=== PATIENT | female | born 1955 | race Two or more races ===

== ENCOUNTER 2016-06-07 22:59 | Inpatient (IN) | payer OTHER ==
[2016-06-07 23:20] VITALS: BMI 41.9
--- NOTE | 2016-06-08 01:26 | PDOC ---
History of Present Illness - General Chief Complaint: Wound Infection Stated Complaint: L TOE INFECTION Time Seen by Provider: 06/07/16 23:18 - History of Present Illness Initial Comments: 06/08/16 01:58 This 60-year-old woman with a history of diabetes mellitus and hyperlipidemia presents with a few day history of progressive right great toe infection. Patient was seen by her PMD, Dr. Roper, on June 05. At that time, she had pain/erythema/edema of the right forefoot, primarily around the great toe. There was no history of injury or open ulcer. She was started on Augmentin 875/ 125 twice a day. Today, forefoot became much more painful, red and swollen. Also, patient developed generalized headache with shaking chills this evening. Patient had no measured fever but states that she rarely becomes febrile when ill. No previous history of diabetic foot ulcer or cellulitis. No previous history of resistant organism colonization or infection. Patient had history of urosepsis approximately 5 years ago which warranted admission to the ICU at [facility]. Past History - Past Medical History Allergies/Adverse Reactions: Allergies Allergy/AdvReac Type Severity Reaction Status Date / Time Shellfish Allergy Verified 07/04/11 03:33 Shellfish *RETIRED-11/14/11 Allergy Uncoded 07/04/11 03:33 Home Medications: Ambulatory Orders Canagliflozin [Invokana] 100 mg PO DAILY tablet 04/12/15 Cholecalciferol (Vitamin D3) [Vitamin D3] 50,000 unit PO WEEKLY capsule Glipizide 10 mg PO 1/2 TAB BID tablet 04/12/15 Metformin HCl [Glucophage] 1,000 mg PO 1/2 TAB BID tablet 04/12/15 Multivitamin [Daily Multiple Vitamin] 1 each PO DAILY tablet 04/12/15 [place]-3 Fatty Acids/Fish Oil [Fish Oil 1,000 Mg Softgel] 1 each PO BID capsule 04/12/15 Thyroid [[place] Thyroid] 15 mg PO DAILY tablet 04/12/15 Dulaglutide [Trulicity] 0.75 mg SQ WEEKLY pen 07/27/15 Anemia: No Asthma: No Cancer: No Cardiac Disorders: No CVA: No COPD: No CHF: No Dementia: No Diabetes: Yes GI Disorders: No Disorders: No HTN: No Hypercholesterolemia: Yes Liver Disease: No Seizures: No Thyroid Disease: No - Surgical History Abdominal Surgery: No Appendectomy: No Cardiac Surgery: No Cholecystectomy: No Lung Surgery: No Neurologic Surgery: No Orthopedic Surgery: Yes - Psycho/Social/Smoking Cessation Hx Anxiety: No Suicidal Ideation: No Smoking Status: No Smoking History: Unknown if ever smoked Have you smoked in the past 12 months: No Number of Cigarettes Smoked Daily: 0 Information on smoking cessation initiated: No Hx Alcohol Use: No Drug/Substance Use Hx: No Substance Use Type: None Hx Substance Use Treatment: No Review of Systems - Review of Systems Able to Perform ROS?: Yes Comments:: 12 point review of systems is negative except for what is noted in the history of present illness *Physical Exam - Vital Signs Last Vital Signs Temp Pulse Resp BP Pulse Ox 98.9 F 90 14 136/79 98 06/07/16 23:16 06/07/16 23:16 06/07/16 23:16 06/07/16 23:16 06/07/16 23:16 - Physical Exam Comments: GENERAL: The patient is awake, alert, and fully oriented, in no acute distress. Vital signs as noted. HEAD: Normal with no signs of trauma. EYES: Pupils equal, round and reactive to light, extraocular movements intact, sclera anicteric, conjunctiva clear with no pallor. ENT: moist mucous membranes. Ears normal, nares patent, oropharynx clear without exudates. NECK: Normal range of motion, supple without lymphadenopathy, JVD, or masses. LUNGS: Breath sounds equal, clear to auscultation bilaterally. No wheeze/ crackles. HEART: Regular rate and rhythm, normal S1 and S2 without murmur or rub. ABDOMEN: Soft/nontender/nondistended. BS wnl. No guarding or rebound. No palpable masses. No hepatosplenomegaly. EXTREMITIES: Right lower extremity- erythema and edema 8 cm by 6 cm area of the dorsal forefoot, area markedly tender Inflammation extends distally to hallux with 3 mm pustule central plantar aspect IP joint No gross fluctuance present; no crepitus appreciated Faint erythema extends proximally 6 cm proximal to ankle joint, anterior aspect Remainder of the extremity exam is normal NEUROLOGICAL: Cranial nerves II through XII grossly intact. Normal speech, moving all extremities equally. PSYCH: Normal mood, normal affect. Wound culture taken from the pustule present on the plantar aspect of the right hallux Twelve-lead electrocardiogram is performed and shows normal sinus rhythm at 74 bpm; axis, intervals and wave forms are all normal. No evidence of acute ST or T-wave abnormalities. ED Treatment Course - LABORATORY CBC & Chemistry Diagram: 06/10/16 07:32 06/10/16 07:32 Medical Decision Making - Medical Decision Making Patient given 1 g of vancomycin IV after blood cultures/wound culture obtained Laboratory evaluation notable for white blood cell count 12,600 Lactic acid is not elevated at 0.952 Random glucose is 148; remainder of the chemistry profile is essentially normal 06/08/16 04:10 [facility] 06/08/16 05:23 Admitting PA chest x-ray of patient preliminary interpretation is no evidence of acute disease. 3 position right foot x-ray read preliminarily: no acute bony pathology and no gas seen in the soft tissue Patient transported to admission bed in stable condition; *DC/Admit/Observation/Transfer Diagnosis at time of Disposition: Cellulitis of right foot Diabetes mellitus Qualifiers: Diabetes mellitus type: type 2 Diabetes mellitus complication status: with skin complications Diabetes mellitus complication detail: with foot ulcer Diabetes mellitus termite exterminator insulin use: without termite exterminator use Qualified Code(s) : E11.621 - Type 2 diabetes mellitus with foot ulcer - Discharge Dispostion Condition at time of disposition: Good Admit: Yes - Referrals
[2016-06-08] MEDS ORDERED: KETOROLAC TROMETHAMINE 30 MG/1 ML VIAL IVPUSH ONE (01:40)
[2016-06-08] MEDS ORDERED: KETOROLAC TROMETHAMINE 30 MG/1 ML VIAL ONE (01:43)
[2016-06-08] MEDS ORDERED: VANCOMYCIN 1,000 MG in DEXTROSE 5%-WATER - 250 ML IVPB ONE (01:56)
[2016-06-08] MEDS ORDERED: VANCOMYCIN 1,000 MG VIAL (RESTRICTED TO ID ONLY) ONE (02:04)
[2016-06-08 02:27] LABS: BASOPHIL 0.4 % (0-2.0); EOSINOPHIL 1.3 % (0-4.5); MCHC 33.9 g/dl (32.0-36.0); MEAN CELL VOLUME 85.5 fl (80-96); NEUTROPHILS 70.9 % (42.8-82.8); RDW 13.6 % (11.6-15.6); WHITE BLOOD COUNT 12.6 K/mm3 (4.0-10.0)
[2016-06-08 03:05] LABS: ALBUMIN 3.6 g/dl (3.4-5.0); ANION GAP 14 (8-16); CALCIUM 8.8 mg/dL (8.5-10.1); CO2 27 mmol/L (21-32); CREATININE 0.6 mg/dL (0.55-1.02); GLUCOSE,RANDOM 148 mg/dL (74-106); SGOT/AST 12 U/L (15-37); SGPT/ALT 26 U/L (12-78)
[2016-06-08 03:06] LABS: ALK PHOS 89 U/L (45-117); BILIRUBIN,TOTAL 0.9 mg/dL (0.2-1.0); TOT PROT 7.5 g/dl (6.4-8.2)
[2016-06-08 03:07] LABS: INR 1.19 (0.82-1.09); PROTHROMBIN TIME (PATIENT) 13.1 SEC (9.98-11.88)
[2016-06-08 03:35] LABS: PLATELET COUNT 272 K/MM3 (134-434)
[2016-06-08 03:36] LABS: MEAN PLT VOLUME 7.9 fl (7.5-11.1)
--- NOTE | 2016-06-08 07:42 | HP ---
[id number] is a 60y/o female with a past medical history of NIDDM, Urosepsis and hyperlipidemia. Patient reports that on May, he noted pain and redness to her right great toe. She was evaluated by her primary care physician Dr. Roper on 06/05/2016, and placed on Augmentin. She reports compliance with Augmentin, however, on 06/07/2016 she reports the redness and pain worsened and she noticed the redness was spreading upward, she contacted her primary care physician and was referred to the emergency department for further evaluation. ER course was notable for: (1) cbc-->WBC 12.6 (2) xray of right foot questionable foreign body of right foot, no fracture (3) vancomycin 1gm given Recent Travel: none PAST MEDICAL HISTORY: see hpi PAST SURGICAL HISTORY: see hpi Social History: joyce , resides at home, Smoking: none Alcohol:none Drugs: none Family History: non contributory Allergies Shellfish Allergy (Verified 07/04/11 03:33) Shellfish *RETIRED-11/14/11 Allergy (Uncoded 07/04/11 03:33) HOME MEDICATIONS: Home Medications Medication Instructions Recorded Canagliflozin [Invokana] 100 mg PO DAILY tablet 04/12/15 Cholecalciferol (Vitamin D3) 50,000 unit PO WEEKLY capsule 04/12/15 [Vitamin D3] Glipizide 10 mg PO 1/2 TAB BID tablet 04/12/15 Metformin HCl [Glucophage] 1,000 mg PO 1/2 TAB BID tablet 04/12/15 Multivitamin [Daily Multiple 1 each PO DAILY tablet 04/12/15 Vitamin] [place]-3 Fatty Acids/Fish Oil [Fish 1 each PO BID capsule 04/12/15 Oil 1,000 Mg Softgel] Thyroid [[place] Thyroid] 15 mg PO DAILY tablet 04/12/15 Dulaglutide [Trulicity] 0.75 mg SQ WEEKLY pen 07/27/15 REVIEW OF SYSTEMS CONSTITUTIONAL: Absent: fever, chills, diaphoresis, generalized weakness, malaise, loss of appetite, weight change HEENT: Absent: rhinorrhea, nasal congestion, throat pain, throat swelling, difficulty swallowing, mouth swelling, ear pain, eye pain, visual changes CARDIOVASCULAR: Absent: chest pain, syncope, palpitations, irregular heart rate, lightheadedness , peripheral edema RESPIRATORY: Absent: cough, shortness of breath, dyspnea with exertion, orthopnea, wheezing, stridor, hemoptysis GASTROINTESTINAL: Absent: abdominal pain, abdominal distension, nausea, vomiting, diarrhea, constipation, melena, hematochezia GENITOURINARY: Absent: dysuria, frequency, urgency, hesitancy, hematuria, flank pain, genital pain MUSCULOSKELETAL: Absent: myalgia, arthralgia, joint swelling, back pain, neck pain SKIN: Absent: rash, itching, pallor HEMATOLOGIC/IMMUNOLOGIC: Absent: easy bleeding, easy bruising, lymphadenopathy, frequent infections ENDOCRINE: Absent: unexplained weight gain, unexplained weight loss, heat intolerance, cold intolerance NEUROLOGIC: Absent: headache, focal weakness or paresthesias, dizziness, unsteady gait, seizure, mental status changes, bladder or bowel incontinence PSYCHIATRIC: Absent: anxiety, depression, suicidal or homicidal ideation, hallucinations. PHYSICAL EXAMINATION GENERAL: Awake, alert, and fully oriented, in no acute distress. HEAD: Normal with no signs of trauma. EYES: Pupils equal, round and reactive to light, extraocular movements intact, sclera anicteric, conjunctiva clear. No lid lag. EARS, NOSE, THROAT: Ears normal, nares patent, oropharynx clear without exudates. Moist mucous membranes. NECK: Normal range of motion, supple without lymphadenopathy, JVD, or masses. LUNGS: Breath sounds equal, clear to auscultation bilaterally. No wheezes, and no crackles. No accessory muscle use. HEART: Regular rate and rhythm, normal S1 and S2 without murmur, rub or gallop. ABDOMEN: Soft, nontender, not distended, normoactive bowel sounds, no guarding, no rebound, no masses. No hepatomegaly or splenomegaly. MUSCULOSKELETAL: Normal range of motion at all joints. No bony deformities or tenderness. No CVA tenderness. UPPER EXTREMITIES: 2+ pulses, warm, well-perfused. No cyanosis. No clubbing. No peripheral edema. LOWER EXTREMITIES: 2+ pulses, warm, well-perfused. No calf tenderness. RIGHT LOWER EXTREMITY: erythema noted to the right great toe, fluctuance noted to dorsum of the right great toe erythema extending to the metatarsals of the right foot, erythema marked, significant tenderness, +3 pedal pulse, +2 edema of the right foot NEUROLOGICAL: Cranial nerves II-XII intact. Normal speech. Normal gait. PSYCHIATRIC: Cooperative. Good eye contact. Appropriate mood and affect. SKIN: Warm, dry, normal turgor, no rashes or lesions noted, normal capillary refill. ASSESSMENT/PLAN: 1) ID: right foot cellulitis - vancomycin given in the ED, appreciate the input of ID (Chema) for antibiotic clearance. - wbc 12.6, leukocytosis noted, pt afebrile, monitor cbc and fever curve - f/u blood cultures - xray of right foot reviewed, no gas noted on xray, mri ordered to r/o osteomyelitis - case discusses with Dr Olmos, (podiatry) will evaluate patient 2) endo: NIDDM - pending hgb a1c, fingerstick achs with regular insulin coverage hypothyroidism - continue armour pending TSH and t4 3) card - LFT's WNL, continue lipitor (subsitute for simvastin f/e/n - diabetic diet - replete lytes prn ppx - oob - zantac dispo: requires inpatient care Visit type - Emergency Visit Emergency Visit: Yes ED Registration Date: 06/08/16 Care time: The patient presented to the Emergency Department on the above date and was hospitalized for further evaluation of their emergent condition. - New Patient This patient is new to me today: Yes Date on this admission: 06/08/16 - Critical Care Critical Care patient: No
[2016-06-08] MEDS: MULTIVITAMINS (DAILY MVI) TABLET (FP) PO SCH (09:47)
[2016-06-08] MEDS: THYROID 15 MG TABLET PO SCH (09:48)
[2016-06-08] MEDS ORDERED: PNEUMOC 13-VAL CONJ-DIP CRM/PF 0.5 ML DISP.SYRIN IM ONE (10:00)
[2016-06-08] MEDS ORDERED: PNEUMOCOCCAL 23 VACCINE 0.5 ML VIAL IM ONE (10:00)
--- NOTE | 2016-06-08 10:10 | PN ---
Progress Note (short form) - Note Progress Note: ID Consult dictated Cellulitis R foot Leukocytosis Diabetes mellitus Podiatry evaluation Empiric vancomycin/ zosyn
[2016-06-08 10:50] LABS: ALBUMIN 3.2 g/dl (3.5-5.0); ALK PHOS 67 U/L (32-92); ANION GAP 7 (8-16); BASOPHIL 0.4 % (0-2.0); BILIRUBIN,TOTAL 1.1 mg/dl (0.2-1.0); CALCIUM 8.7 mg/dl (8.4-10.2); CO2 24 mmol/L (22-28); CREATININE 0.6 mg/dl (0.6-1.3); EOSINOPHIL 2.6 % (0-4.5); GLUCOSE,RANDOM 212 mg/dl (74-106); MEAN PLT VOLUME 7.9 fl (7.5-11.1); NEUTROPHILS 62.3 % (42.8-82.8); PLATELET COUNT 285 K/MM3 (134-434); RDW 12.3 % (11.6-15.6); SGOT/AST 15 U/L (10-42); SGPT/ALT 17 U/L (10-40); TOT PROT 6.4 g/dl (6.4-8.3); URIC ACID 5.4 mg/dl (2.6-7.2); WHITE BLOOD COUNT 8.4 K/mm3 (4.0-10.0)
[2016-06-08] MEDS ORDERED: PT OWN MED DRAWER 7, Y5N ONE (10:57)
[2016-06-08] MEDS ORDERED: VANCOMYCIN 1,000 MG in SODIUM CHLORIDE 250 ML IVPB SCH (11:00)
[2016-06-08] MEDS ORDERED: INSULIN (NOVOLOG) ASPART 100 UNITS/ML 10ML VIAL SQ SCH (11:00)
[2016-06-08] MEDS: PIPERACILLIN/TAZOB 3.375 GM 3.375 GM in SODIUM CHLORIDE 50 ML IVPB SCH ×2 (11:04→21:43)
[2016-06-08] MEDS: INSULIN (NOVOLOG) ASPART 100 UNITS/ML 10ML VIAL SQ SCH ×3 (11:09→21:45)
[2016-06-08] MEDS: RANITIDINE HCL 150 MG TABLET (FP) PO SCH (11:56)
[2016-06-08] MEDS: LACTOBACILLUS ACIDOPHILUS 1 EACH TAB (FP) PO SCH (11:57)
[2016-06-08 12:12] LABS: ERYTHROCYTE SEDIMENTATION RATE 55 mm/hr (0-30)
[2016-06-08 12:13] LABS: FREE T4 1.19 ng/dl (0.76-1.46)
[2016-06-08 13:30] LABS: C-REACTIVE PROTEIN 7.4 MG/DL (0.00-0.3)
--- NOTE | 2016-06-08 13:52 | CONS ---
DATE OF CONSULTATION: DATE OF DICTATION: 06/08/2016 INFECTIOUS DISEASE CONSULTATION HISTORY OF PRESENT ILLNESS: The patient is a 60-year-old diabetic female who was evaluated for cellulitis of the right foot. The patient reports that on Saturday, June 04, 2016, she had spent most of the day on her feet. She noted swelling of the right foot and erythema involving the area of the right great toe. She had presented to her primary care physician on the following day on June 05, 2016, and was found to have cellulitis of the right great toe. She was prescribed Augmentin, and despite the Augmentin she developed worsening pain, erythema, and swelling of the right foot. She also experienced rigors. She presented to the emergency room where she was found to have cellulitis of the right foot and was admitted to the hospital. She denies any traumatic injury to her right lower extremity. She does have peripheral neuropathy with decreased sensation in her feet. She denies any high-grade fevers. She denies prior history of serious soft tissue infection requiring hospitalization or a history of MRSA infection. PAST MEDICAL HISTORY: Positive for diabetes mellitus and hyperlipidemia. ALLERGIES: ALLERGIES TO SHELLFISH. MEDICATIONS: Invokana, glipizide, metformin, and Synthroid. SOCIAL HISTORY: She is an Muslim computer hardware developer. She is a nonsmoker and nondrinker. SYSTEMS REVIEW: Neurologic: No loss of consciousness, seizure activity, or focal weakness. Cardiac: Negative chest pain or palpitations. Respiratory: Negative cough or sputum production. Gastrointestinal: Negative vomiting or diarrhea. Genitourinary: Negative for urinary tract infection. LABORATORY DATA: White count of 12.6, hematocrit of 40, and platelets of 272. BUN of 11 and creatinine of 0.6. Culture is pending. PHYSICAL EXAMINATION: General Appearance: She is awake and alert. She is not acutely toxic appearing. Vital Signs: Temperature of 97.7, blood pressure of 122/63, pulse of 78 and regular, and respirations of 20 per minute. HEENT: Sclerae are anicteric. Cardiovascular: Heart sounds S1, S2. Lungs: Clear. Abdomen: Soft, obese, and nontender. Extremities: Examination of the lower extremities there is swelling of the right foot. There is erythema extending from the area of the right great toe to the area of the 1st metatarsal head and to the base of the toes. It is warm to touch and tender. There is no crepitus, fluctuance, or lymphatic streaking. There is a callous present on the plantar aspect of the right great toe. No fluctuance or expressible pus. IMPRESSION 1. Cellulitis of the right foot. 2. Leukocytosis, possible sepsis secondary to diabetic foot infection. 3. Diabetes mellitus. 4. Diabetic peripheral neuropathy. Await culture results. Podiatry evaluation. X-ray shows possible presence of foreign body in the soft tissues of the right foot. Empiric antibiotic coverage pending cultures with vancomycin and Zosyn. Elevation, analgesics. Will follow. Thank you for the kind referral. RICKIE NEAL M.D. JOSE/[id number]
[2016-06-08] MEDS: VANCOMYCIN 1,000 MG in SODIUM CHLORIDE 250 ML IVPB SCH (14:16)
[2016-06-08 16:20] LABS: PH,URINE 5.5 (4.5-8); URINE APPEARANCE CLOUDY; URINE BILIRUBIN Negative (NEGATIVE); URINE BLOOD Negative (NEGATIVE); URINE COLOR YELLOW; URINE GLUCOSE (UA) 2+ (NEGATIVE); URINE KETONE 1+ (NEGATIVE); URINE LEUK ESTERASE Negative (NEGATIVE); URINE NITRITE Negative (NEGATIVE); URINE PROTEIN Negative (NEGATIVE); URINE UROBILINOGEN 0.2 E.U/dl (0.2-1.0)
[2016-06-08] MEDS ORDERED: INSULIN (NOVOLOG) ASPART 100 UNITS/ML 10ML VIAL ONE ×2 (16:25→21:34)
--- NOTE | 2016-06-08 16:33 | EKG ---
Test Reason : Blood Pressure : / mmHG Vent. Rate : 074 BPM Atrial Rate : 074 BPM P-R Int : 180 ms QRS Dur : 068 ms QT Int : 400 ms P-R-T Axes : 059 037 053 degrees QTc Int : 444 ms NORMAL SINUS RHYTHM NO PREVIOUS ECGS AVAILABLE Confirmed by MD GIOVANNA, MONE ([id number]) on 06/08/2016 4:33:29 PM Referred By: MD SHEPHERD Confirmed By:MONE HEREDIA MD
[2016-06-08] MEDS ORDERED: PIPERACILLIN/TAZOB 3.375 GM 50 ML IVPB ONE (21:30)
[2016-06-08] MEDS: ATORVASTATIN CA 20 MG TABLET (FP) PO SCH (21:43)
[2016-06-08] MEDS ORDERED: ATORVASTATIN CA 40 MG TABLET (FP) PO SCH (22:00)
[2016-06-09] MEDS ORDERED: PT OWN MED DRAWER 7, Y5N ONE ×3 (01:13→21:45)
[2016-06-09] MEDS: VANCOMYCIN 1,000 MG in SODIUM CHLORIDE 250 ML IVPB SCH ×2 (01:27→13:59)
[2016-06-09] MEDS: INSULIN (NOVOLOG) ASPART 100 UNITS/ML 10ML VIAL SQ SCH ×4 (07:15→22:04)
[2016-06-09] MEDS: PIPERACILLIN/TAZOB 3.375 GM 3.375 GM in SODIUM CHLORIDE 50 ML IVPB SCH ×2 (09:34→21:52)
[2016-06-09] MEDS: MULTIVITAMINS (DAILY MVI) TABLET (FP) PO SCH (09:35)
[2016-06-09] MEDS: LACTOBACILLUS ACIDOPHILUS 1 EACH TAB (FP) PO SCH (09:35)
[2016-06-09] MEDS: THYROID 15 MG TABLET PO SCH (09:35)
[2016-06-09] MEDS: RANITIDINE HCL 150 MG TABLET (FP) PO SCH (09:35)
--- NOTE | 2016-06-09 10:23 | PN ---
Progress Note, Physician History of Present Illness: Reports less foot pain No fever/ chills Tolerating antibiotic MRI shows possible early osteomyelitis - Current Medication List Current Medications: Active Medications Acetaminophen (Tylenol -) 650 mg PO Q4H PRN PRN Reason: FEVER OR PAIN Atorvastatin Calcium (Lipitor -) 20 mg PO HS [facility] Last Admin: 06/08/16 21:43 Dose: 20 mg Piperacillin Sod/Tazobactam (Sod 3.375 gm/ Sodium Chloride) 50 mls @ 100 mls/ hr IVPB BID GON[facility]LE[facility] PRN Reason: Protocol Last Admin: 06/09/16 09:34 Dose: 100 mls/hr Vancomycin HCl 1,000 mg/ (Sodium Chloride) 250 mls @ 166.667 mls/hr IVPB Q12H [facility] Last Admin: 06/09/16 01:27 Dose: 166.667 mls/hr Insulin Aspart (Novolog Vial) 0 units SQ ACHS [facility] PRN Reason: Protocol Stop: 06/13/16 08:21 Last Admin: 06/08/16 21:45 Dose: 2 units Lactobacillus Acidophilus (Bacid -) 1 tab PO DAILY [facility] Last Admin: 06/09/16 09:35 Dose: 1 tab Multivitamins/Minerals/Vitamin C (Tab-A-Vit -) 1 tab PO DAILY [facility] Last Admin: 06/09/16 09:35 Dose: 1 tab Non-Formulary Medication ([place]-3 Fatty Acids/Fish Oil [Fish Oil 1,000 Mg Softgel]) 1 each PO BID [facility] Last Admin: 06/08/16 09:50 Dose: Not Given Oxycodone HCl (Roxicodone -) 5 mg PO Q6H PRN PRN Reason: PAIN Ranitidine HCl (Zantac -) 150 mg PO DAILY [facility] Last Admin: 06/09/16 09:35 Dose: 150 mg Thyroid ([place] Thyroid -) 15 mg PO DAILY [facility] Last Admin: 06/09/16 09:35 Dose: 15 mg - Objective Vital Signs: Vital Signs Temperature 99.2 F 06/09/16 06:00 Pulse Rate 75 06/09/16 06:00 Respiratory Rate 19 06/09/16 09:24 Blood Pressure 159/62 06/09/16 06:00 O2 Sat by Pulse Oximetry (%) 96 06/09/16 09:24 Constitutional: Yes: No Distress Eyes: Yes: Conjunctiva Clear Cardiovascular: Yes: Regular Rate and Rhythm, S1, S2 Respiratory: Yes: CTA Bilaterally Gastrointestinal: Yes: Normal Bowel Sounds, Soft. No: Tenderness Extremities: Yes: Other (slightly improved erythema and swelling of R great toe , forefoot) Labs: CBC, BMP 06/08/16 10:00 06/08/16 10:00 INR, PTT INR 1.19 (0.82-1.09) H 06/08/16 01:32 Assessment/Plan Cellulitis R foot Possible early osteomyelitis Leukocytosis-improved Diabetes mellitus Wound c/s, podiatry consult pending Continue zosyn/ vancomycin Local wound care
[2016-06-09 10:51] LABS: BASOPHIL 0.5 % (0-2.0); EOSINOPHIL 2.8 % (0-4.5); MCHC 34.1 g/dl (32.0-36.0); MEAN CELL VOLUME 85.1 fl (80-96); MEAN PLT VOLUME 7.7 fl (7.5-11.1); NEUTROPHILS 66.7 % (42.8-82.8); PLATELET COUNT 333 K/MM3 (134-434); RDW 12.5 % (11.6-15.6); WHITE BLOOD COUNT 8.6 K/mm3 (4.0-10.0)
[2016-06-09 11:04] LABS: ALBUMIN 3.6 g/dl (3.5-5.0); ALK PHOS 77 U/L (32-92); ANION GAP 7 (8-16); BILIRUBIN,TOTAL 0.8 mg/dl (0.2-1.0); CO2 24 mmol/L (22-28); CREATININE 0.6 mg/dl (0.6-1.3); GLUCOSE,RANDOM 177 mg/dl (74-106); MAGNESIUM 1.9 mg/dL (1.8-2.4); PHOSPHOROUS 3.1 mg/dl (2.5-4.6); SGOT/AST 24 U/L (10-42); SGPT/ALT 20 U/L (10-40); TOT PROT 7.3 g/dl (6.4-8.3)
[2016-06-09] MEDS: ACETAMINOPHEN 325 MG TABLET (FP) PO PRN ×2 (11:39→20:00)
--- NOTE | 2016-06-09 14:41 | PN ---
[id number] OBJECTIVE: patient is a 60y/o female with a past medical history of NIDDM, Urosepsis and hyperlipidemia. patient was admitted from the emergency department for right foot cellulitis after failing outpatient antibiotic therapy. Vital Signs Period Temp Pulse Resp BP Sys/Mas Pulse Ox Last 24 Hr 97.8 F-99.2 F 75-86 18-19 127-159/62-72 95-97 GENERAL: Awake, alert, and fully oriented, in no acute distress. HEAD: Normal with no signs of trauma. EYES: Pupils equal, round and reactive to light, extraocular movements intact, sclera anicteric, conjunctiva clear. No lid lag. EARS, NOSE, THROAT: Ears normal, nares patent, oropharynx clear without exudates. Moist mucous membranes. NECK: Normal range of motion, supple without lymphadenopathy, JVD, or masses. LUNGS: Breath sounds equal, clear to auscultation bilaterally. No wheezes, and no crackles. No accessory muscle use. HEART: Regular rate and rhythm, normal S1 and S2 without murmur, rub or gallop. ABDOMEN: Soft, nontender, not distended, normoactive bowel sounds, no guarding, no rebound, no masses. No hepatomegaly or splenomegaly. MUSCULOSKELETAL: Normal range of motion at all joints. No bony deformities or tenderness. No CVA tenderness. UPPER EXTREMITIES: 2+ pulses, warm, well-perfused. No cyanosis. No clubbing. No peripheral edema. LOWER EXTREMITIES: 2+ pulses, warm, well-perfused. No calf tenderness. RIGHT LOWER EXTREMITY: erythema noted to the right great toe, fluctuance noted to plantar of the right great toe, erythema is much improved extending to the metatarsals of the right foot, erythema is not extending past the markings, tenderness is much improved, +3 pedal pulse, +2 edema of the right foot NEUROLOGICAL: Cranial nerves II-XII intact. Normal speech. Normal gait. PSYCHIATRIC: Cooperative. Good eye contact. Appropriate mood and affect. SKIN: Warm, dry, normal turgor, no rashes or lesions noted, normal capillary refill. Laboratory Results - last 24 hr 06/08/16 06/08/16 06/08/16 15:00 16:00 16:21 WBC RBC Hgb Hct MCV MCHC RDW Plt Count MPV Neutrophils % Lymphocytes % Monocytes % Eosinophils % Basophils % Sodium Potassium Chloride Carbon Dioxide Anion Gap BUN Creatinine Creat Clearance w eGFR POC Glucometer 168 Random Glucose Hemoglobin A1c % 9.2 H D Calcium Phosphorus Magnesium Total Bilirubin AST ALT Alkaline Phosphatase Total Protein Albumin Urine Color Yellow Urine Appearance Cloudy Urine pH 5.5 Ur Specific [place] 1.015 Urine Protein Negative Urine Glucose (UA) 2+ H Urine Ketones 1+ H Urine Blood Negative Urine Nitrite Negative Urine Bilirubin Negative Urine Urobilinogen 0.2 e.u/dl Ur Leukocyte Esterase Negative 06/08/16 06/09/16 06/09/16 21:45 06:06 10:30 WBC 8.6 RBC 5.00 Hgb 14.5 D Hct 42.6 MCV 85.1 MCHC 34.1 RDW 12.5 Plt Count 333 MPV 7.7 Neutrophils % 66.7 Lymphocytes % 25.2 Monocytes % 4.8 Eosinophils % 2.8 Basophils % 0.5 Sodium Potassium Chloride Carbon Dioxide Anion Gap BUN Creatinine Creat Clearance w eGFR POC Glucometer 156 122 Random Glucose Hemoglobin A1c % Calcium Phosphorus Magnesium Total Bilirubin AST ALT Alkaline Phosphatase Total Protein Albumin Urine Color Urine Appearance Urine pH Ur Specific [place] Urine Protein Urine Glucose (UA) Urine Ketones Urine Blood Urine Nitrite Urine Bilirubin Urine Urobilinogen Ur Leukocyte Esterase 06/09/16 06/09/16 10:30 11:42 WBC RBC Hgb Hct MCV MCHC RDW Plt Count MPV Neutrophils % Lymphocytes % Monocytes % Eosinophils % Basophils % Sodium 133 L Potassium 4.2 Chloride 102 Carbon Dioxide 24 Anion Gap 7 L BUN 12 Creatinine 0.6 Creat Clearance w eGFR > 60 POC Glucometer 136 Random Glucose 177 H Hemoglobin A1c % Calcium 9.0 Phosphorus 3.1 Magnesium 1.9 Total Bilirubin 0.8 D AST 24 D ALT 20 Alkaline Phosphatase 77 Total Protein 7.3 Albumin 3.6 Urine Color Urine Appearance Urine pH Ur Specific [place] Urine Protein Urine Glucose (UA) Urine Ketones Urine Blood Urine Nitrite Urine Bilirubin Urine Urobilinogen Ur Leukocyte Esterase Active Medications Generic Name Dose Route Start Last Admin Trade Name Freq PRN Reason Stop Dose Admin Acetaminophen 650 mg 06/08/16 11:27 06/09/16 11:39 Tylenol - PO 650 mg Q4H PRN Administration FEVER OR PAIN Atorvastatin Calcium 20 mg 06/08/16 22:00 06/08/16 21:43 Lipitor - PO 20 mg HS GONZÁLEZ Administration Piperacillin Sod/Tazobactam 50 mls @ 100 mls/hr 06/08/16 10:45 06/09/16 09:34 Sod 3.375 gm/ Sodium Chloride IVPB 100 mls/hr BID GONZÁLEZ Administration Protocol Vancomycin HCl 1,000 mg/ 250 mls @ 166.667 mls/hr 06/08/16 14:00 06/09/16 13:59 Sodium Chloride IVPB 166.667 mls/hr Q12H GONZÁLEZ Administration Insulin Aspart 0 units 06/08/16 11:00 06/09/16 11:44 Novolog Vial SQ 06/13/16 08:21 Not Given ACHS [facility] Protocol Lactobacillus Acidophilus 1 tab 06/08/16 11:30 06/09/16 09:35 Bacid - PO 1 tab DAILY GONZÁLEZ Administration Multivitamins/Minerals/Vitamin C 1 tab 06/08/16 10:00 06/09/16 09:35 Tab-A-Vit - PO 1 tab DAILY GONZÁLEZ Administration Non-Formulary Medication 1 each 06/08/16 10:00 06/08/16 09:50 [place]-3 Fatty Acids/Fish Oil [Fish Oil 1,000 Mg Softgel] PO Not Given BID GONZÁLEZ Oxycodone HCl 5 mg 06/08/16 11:28 Roxicodone - PO Q6H PRN PAIN Ranitidine HCl 150 mg 06/08/16 11:30 06/09/16 09:35 Zantac - PO 150 mg DAILY GONZÁLEZ Administration Thyroid 15 mg 06/08/16 10:00 06/09/16 09:35 [place] Thyroid - PO 15 mg DAILY GONZÁLEZ Administration Microbiology 06/08/16 01:20 Toe - Right Hallux Gram Stain - Final 06/08/16 01:20 Toe - Right Hallux Wound Culture - Preliminary NO GROWTH OBTAINED AFTER 24 HOURS INCUBATION, REINCUBATED. 06/08/16 03:30 Urine - Urine Clean Catch Urine Culture - Final NO GROWTH OBTAINED 06/08/16 01:30 Blood - Peripheral Venous Blood Culture - Preliminary NO GROWTH OBTAINED AFTER 24 HOURS, INCUBATION TO CONTINUE FOR 4 DAYS. 06/08/16 01:30 Blood - Peripheral Venous Blood Culture - Preliminary NO GROWTH OBTAINED AFTER 24 HOURS, INCUBATION TO CONTINUE FOR 4 DAYS. IMAGING xray of right foot questionable foreign body of right foot, no fracture MRI of right foot, diffuse soft tissue edema, suspicious for early osteomyelitis. ASSESSMENT/PLAN: 1) ID: right foot cellulitis - MRI results noted, questionable foreign body of right toe noted on xray in setting of significant soft tissue edema and questionable osteomyelitis, case discussed with Dr Encarnacion (podiatry), will defer to Dr Encarnacion for foreign body removal. - contine vancomycin and zosyn as per ID - no leukocytosis noted, pt afebrile, continue to monitor cbc and fever curve - blood cultures NTD - case discusses with Dr Olmos, (podiatry) will evaluate patient - ID (Chema) consulted and followed. 2) endo: NIDDM - continue fingerstick achs with regular insulin coverage for tighter glucose control hypothyroidism - continue armour pending TSH and t4 3) card - continue lipitor (subsitute for simvastin) f/e/n - diabetic diet - replete lytes prn ppx - oob - zantac dispo: requires inpatient care Visit type - Emergency Visit Emergency Visit: Yes ED Registration Date: 06/08/16 Care time: The patient presented to the Emergency Department on the above date and was hospitalized for further evaluation of their emergent condition. - New Patient This patient is new to me today: No - Critical Care Critical Care patient: No - Discharge Referral Referred to [facility] No
--- NOTE | 2016-06-09 18:13 | CONSULT ---
Consult - text type - Consultation Consultation Note: Podiatry Consultation: 60 year old pleasant NIDDM F presents for admission for increased redness/ swelling to the R great toe since Sunday. Patient went to see PCP who prescribed her PO augmentin, however failed trial of PO abx as redness/swelling continued to the lower leg. She does note improvement in swelling/redness since admission, however has significant tenderness to the R great toe. She does not recall stepping on anything, however does ambulate at home with soft slippers. Reports fever/chills for several days. Currently low grade temp 99 F , otherwise VSS. PMHx: NIDDM, HLP, urosepsis Meds: noted in chart ALL: shellfish FRANK: R foot: pedal pulses palpable, TG warm-warmer RLE, CFT brisk to all toes. On the right great toe, there is a pustule on the plantar aspect of the IPJ with cellulitis and edema to the forefoot. There is significant tenderness on compression of the pustule. There is superficial purulence expressed from the site. There is no soft tissue crepitus, some fluctuance localized. Epicritic sensation diminished to bilateral feet. WBC: 8.6 ESR: 55 Blood Cx: no growth Wound Cx: no growth MRI R foot: suspicious for early OM Imp: 60 year old DM F with R great toe pustule and cellulitis 1. Incision and drainage performed at bedside, yielding small shard of glass that was subsequently removed in total. The wound was debrided to subcutaneous tissue, there was no significant depth to the wound or probing to bone. New wound culture obtained. Dry sterile dressing applied. Pt tolerated the procedure well. 2. Bactroban + DSD dressing changes. 3. Cellulitis should improve over next 48 hrs with IV abx treatment. 4. Will discuss with ID, given foreign body present and now subsequently removed I am not convinced this is an acute osteomyelitis. 5. Monitor over next 2 days, should improved. Thanks for the courtesy of this consultation. Nella Encarnacion DPM
[2016-06-09] MEDS: oxyCODONE HCL 5 MG TABLET PO PRN (20:01)
[2016-06-09] MEDS ORDERED: POLYETHYLENE GLYCOL 3350 119 GM BTL PO ONE (21:50)
[2016-06-09] MEDS: ATORVASTATIN CA 20 MG TABLET (FP) PO SCH (21:52)
[2016-06-09] MEDS: MUPIROCIN 2% TOPICAL OINTMENT 22 GM TUBE TP SCH (21:55)
[2016-06-09] MEDS ORDERED: INSULIN (NOVOLOG) ASPART 100 UNITS/ML 10ML VIAL ONE (22:03)
[2016-06-10] MEDS: VANCOMYCIN 1,000 MG in SODIUM CHLORIDE 250 ML IVPB SCH ×2 (01:09→15:28)
[2016-06-10] MEDS: INSULIN (NOVOLOG) ASPART 100 UNITS/ML 10ML VIAL SQ SCH ×4 (06:17→22:03)
[2016-06-10 07:39] LABS: BASOPHIL 0.4 % (0-2.0); EOSINOPHIL 3.2 % (0-4.5); MCH 29.3 pg (25.7-33.7); MCHC 34.8 g/dl (32.0-36.0); MEAN CELL VOLUME 84.1 fl (80-96); MEAN PLT VOLUME 7.2 fl (7.5-11.1); NEUTROPHILS 64.4 % (42.8-82.8); PLATELET COUNT 288 K/MM3 (134-434); RDW 12.1 % (11.6-15.6); WHITE BLOOD COUNT 8.6 K/mm3 (4.0-10.0)
[2016-06-10 08:25] LABS: CALCIUM 8.6 mg/dl (8.4-10.2); CREATININE 0.6 mg/dl (0.6-1.3); MAGNESIUM 1.7 mg/dL (1.8-2.4); PHOSPHOROUS 3.7 mg/dl (2.5-4.6)
--- NOTE | 2016-06-10 08:50 | PN ---
[id number] Hospital day #3 for this 60 year old female with a history of NIDDM admitted with RLE cellulitis after failing outpatient therapy. S/p bedside I&D with podiatry yesterday; shard of glass removed! Vital Signs Period Temp Pulse Resp BP Sys/Mas Pulse Ox Last 24 Hr 98.2 F-99.1 F 66-78 18-19 130-147/68-77 96-96 GENERAL: The patient is awake, alert, and fully oriented, in no acute distress. HEAD: Normal with no signs of trauma. EYES: PERRL, extraocular movements intact, sclera anicteric, conjunctiva clear. No ptosis. ENT: Ears normal, nares patent, oropharynx clear without exudates, moist mucous membranes. NECK: Trachea midline, full range of motion, supple. LUNGS: Breath sounds equal, clear to auscultation bilaterally, no wheezes, no crackles, no accessory muscle use. HEART: Regular rate and rhythm, S1, S2 without murmur, rub or gallop. ABDOMEN: Soft, nontender, nondistended, normoactive bowel sounds, no guarding, no rebound, no hepatosplenomegaly, no masses. EXTREMITIES: Right foot erythema has receded compared to demarcated area. Minimal warmth, injection molding machine tender. 2+ pedal edema on the right side. Pedal pulse 2+. NEUROLOGICAL: Cranial nerves II through XII grossly intact. Normal speech, gait not observed. PSYCH: Normal mood, normal affect. SKIN: Warm, dry, normal turgor, no rashes or lesions noted Laboratory Results - last 24 hr 06/08/16 06/09/16 06/09/16 16:00 10:30 10:30 WBC 8.6 RBC 5.00 Hgb 14.5 D Hct 42.6 MCV 85.1 MCHC 34.1 RDW 12.5 Plt Count 333 MPV 7.7 Neutrophils % 66.7 Lymphocytes % 25.2 Monocytes % 4.8 Eosinophils % 2.8 Basophils % 0.5 Sodium 133 L Potassium 4.2 Chloride 102 Carbon Dioxide 24 Anion Gap 7 L BUN 12 Creatinine 0.6 Creat Clearance w eGFR > 60 POC Glucometer Random Glucose 177 H Hemoglobin A1c % 9.2 H D Calcium 9.0 Phosphorus 3.1 Magnesium 1.9 Total Bilirubin 0.8 D AST 24 D ALT 20 Alkaline Phosphatase 77 Total Protein 7.3 Albumin 3.6 Vancomycin Trough 06/09/16 06/09/16 06/09/16 11:42 13:15 16:38 WBC RBC Hgb Hct MCV MCHC RDW Plt Count MPV Neutrophils % Lymphocytes % Monocytes % Eosinophils % Basophils % Sodium Potassium Chloride Carbon Dioxide Anion Gap BUN Creatinine Creat Clearance w eGFR POC Glucometer 136 97 Random Glucose Hemoglobin A1c % Calcium Phosphorus Magnesium Total Bilirubin AST ALT Alkaline Phosphatase Total Protein Albumin Vancomycin Trough 7.749 06/09/16 06/10/16 06/10/16 21:57 06:15 07:32 WBC 8.6 RBC 4.51 Hgb 13.2 Hct 38.0 MCV 84.1 MCHC 34.8 RDW 12.1 Plt Count 288 MPV 7.2 L Neutrophils % 64.4 Lymphocytes % 26.0 Monocytes % 6.0 Eosinophils % 3.2 Basophils % 0.4 Sodium Potassium Chloride Carbon Dioxide Anion Gap BUN Creatinine Creat Clearance w eGFR POC Glucometer 185 119 Random Glucose Hemoglobin A1c % Calcium Phosphorus Magnesium Total Bilirubin AST ALT Alkaline Phosphatase Total Protein Albumin Vancomycin Trough 06/10/16 07:32 WBC RBC Hgb Hct MCV MCHC RDW Plt Count MPV Neutrophils % Lymphocytes % Monocytes % Eosinophils % Basophils % Sodium 134 L Potassium 4.3 Chloride 104 Carbon Dioxide 24 Anion Gap 6 L BUN 10 Creatinine 0.6 Creat Clearance w eGFR POC Glucometer Random Glucose 137 H D Hemoglobin A1c % Calcium 8.6 Phosphorus 3.7 Magnesium 1.7 L Total Bilirubin AST ALT Alkaline Phosphatase Total Protein Albumin Vancomycin Trough Active Medications Generic Name Dose Route Start Last Admin Trade Name Freq PRN Reason Stop Dose Admin Acetaminophen 650 mg 06/08/16 11:27 06/09/16 20:00 Tylenol - PO 650 mg Q4H PRN Administration FEVER OR PAIN Atorvastatin Calcium 20 mg 06/08/16 22:00 06/09/16 21:52 Lipitor - PO 20 mg HS GONZÁLEZ Administration Piperacillin Sod/Tazobactam 50 mls @ 100 mls/hr 06/08/16 10:45 06/09/16 21:52 Sod 3.375 gm/ Sodium Chloride IVPB 100 mls/hr BID GONZÁLEZ Administration Protocol Vancomycin HCl 1,000 mg/ 250 mls @ 166.667 mls/hr 06/08/16 14:00 06/10/16 01:09 Sodium Chloride IVPB 166.667 mls/hr Q12H GONZÁLEZ Administration Insulin Aspart 0 units 06/08/16 11:00 06/10/16 06:17 Novolog Vial SQ 06/13/16 08:21 Not Given ACHS [facility] Protocol Lactobacillus Acidophilus 1 tab 06/08/16 11:30 06/09/16 09:35 Bacid - PO 1 tab DAILY GONZÁLEZ Administration Multivitamins/Minerals/Vitamin C 1 tab 06/08/16 10:00 06/09/16 09:35 Tab-A-Vit - PO 1 tab DAILY GONZÁLEZ Administration Mupirocin 1 applic 06/09/16 22:00 06/09/16 21:55 Bactroban 2% Ointment - TP 1 appful BID GONZÁLEZ Administration Non-Formulary Medication 1 each 06/08/16 10:00 06/08/16 09:50 [place]-3 Fatty Acids/Fish Oil [Fish Oil 1,000 Mg Softgel] PO Not Given BID GONZÁLEZ Oxycodone HCl 5 mg 06/08/16 11:28 06/09/16 20:01 Roxicodone - PO 5 mg Q6H PRN Administration PAIN Ranitidine HCl 150 mg 06/08/16 11:30 06/09/16 09:35 Zantac - PO 150 mg DAILY GONZÁLEZ Administration Thyroid 15 mg 06/08/16 10:00 06/09/16 09:35 [place] Thyroid - PO 15 mg DAILY GONZÁLEZ Administration Microbiology Microbiology 06/08/16 01:30 Blood - Peripheral Venous Blood Culture - Preliminary NO GROWTH OBTAINED AFTER 72 HOURS, INCUBATION TO CONTINUE FOR 2 DAYS. 06/08/16 01:30 Blood - Peripheral Venous Blood Culture - Preliminary NO GROWTH OBTAINED AFTER 72 HOURS, INCUBATION TO CONTINUE FOR 2 DAYS. 06/09/16 18:00 Foot - Right Dorsum Gram Stain - Final 06/08/16 01:20 Toe - Right Hallux Gram Stain - Final 06/08/16 01:20 Toe - Right Hallux Wound Culture - Final NO GROWTH AFTER 48 HOURS INCUBATION 06/08/16 03:30 Urine - Urine Clean Catch Urine Culture - Final NO GROWTH OBTAINED IMAGING Xray of right foot: ?Foreign body, no fracture MRI of right foot: Diffuse soft tissue edema, suspicious for early osteomyelitis. ASSESSMENT/PLAN: 1. ID: right foot cellulitis -S/p bedside I&D with podiatry, fb removed -Podiatry recommends continuation of IV abx for 48h s/p I&D -Doubts true osteomyelitis -Follow fever, WBC curve 2. ENDO: NIDDM -FSACHS -ISS -Diabetic diet Hypothyroidism -Continue [place] Thyroid 3. CARDS: Dyslipidemia -Continue Lipitor 4. F/E/N -Replete Mg -Diabetic diet 5. Ppx -Ambulation -Lovenox 40mg sq daily DISPO: Requires inpatient care. Visit type - Emergency Visit Emergency Visit: Yes ED Registration Date: 06/08/16 Care time: The patient presented to the Emergency Department on the above date and was hospitalized for further evaluation of their emergent condition. - New Patient This patient is new to me today: Yes Date on this admission: 06/08/16 - Critical Care Critical Care patient: No - Discharge Referral Referred to [facility] No
[2016-06-10] MEDS ORDERED: PT OWN MED DRAWER 7, Y5N ONE ×2 (10:01→21:25)
[2016-06-10] MEDS: RANITIDINE HCL 150 MG TABLET (FP) PO SCH (10:05)
[2016-06-10] MEDS: THYROID 15 MG TABLET PO SCH (10:05)
[2016-06-10] MEDS: MULTIVITAMINS (DAILY MVI) TABLET (FP) PO SCH (10:05)
[2016-06-10] MEDS: LACTOBACILLUS ACIDOPHILUS 1 EACH TAB (FP) PO SCH (10:06)
[2016-06-10] MEDS: PIPERACILLIN/TAZOB 3.375 GM 3.375 GM in SODIUM CHLORIDE 50 ML IVPB SCH ×2 (10:06→22:28)
[2016-06-10] MEDS: MUPIROCIN 2% TOPICAL OINTMENT 22 GM TUBE TP SCH ×2 (10:10→22:11)
[2016-06-10] MEDS ORDERED: MAGNESIUM OXIDE 400 MG TABLET (FP) PO ONE (11:00)
[2016-06-10] MEDS: ACETAMINOPHEN 325 MG TABLET (FP) PO PRN ×2 (11:49→19:46)
[2016-06-10] MEDS ORDERED: INSULIN (NOVOLOG) ASPART 100 UNITS/ML 10ML VIAL ONE (17:51)
[2016-06-10] MEDS: oxyCODONE HCL 5 MG TABLET PO PRN (19:47)
[2016-06-10] MEDS: ATORVASTATIN CA 20 MG TABLET (FP) PO SCH (22:03)
[2016-06-11] MEDS ORDERED: PT OWN MED DRAWER 7, Y5N ONE ×3 (00:06→16:42)
[2016-06-11] MEDS: VANCOMYCIN 1,000 MG in SODIUM CHLORIDE 250 ML IVPB SCH ×2 (02:02→13:51)
[2016-06-11] MEDS: INSULIN (NOVOLOG) ASPART 100 UNITS/ML 10ML VIAL SQ SCH ×4 (06:43→21:55)
[2016-06-11 08:08] LABS: BASOPHIL 0.1 % (0-2.0); EOSINOPHIL 3.2 % (0-4.5); MCH 29.3 pg (25.7-33.7); MCHC 33.9 g/dl (32.0-36.0); MEAN CELL VOLUME 86.4 fl (80-96); MEAN PLT VOLUME 8.1 fl (7.5-11.1); NEUTROPHILS 56.4 % (42.8-82.8); PLATELET COUNT 345 K/MM3 (134-434); RDW 12.3 % (11.6-15.6); WHITE BLOOD COUNT 8.5 K/mm3 (4.0-10.0)
[2016-06-11 08:19] LABS: ALBUMIN 3.4 g/dl (3.5-5.0); ALK PHOS 75 U/L (32-92); ANION GAP 8 (8-16); BILIRUBIN,TOTAL 0.6 mg/dl (0.2-1.0); CALCIUM 9.2 mg/dl (8.4-10.2); CO2 26 mmol/L (22-28); CREATININE 0.7 mg/dl (0.6-1.3); GLUCOSE,RANDOM 172 mg/dl (74-106); MAGNESIUM 1.9 mg/dL (1.8-2.4); SGOT/AST 24 U/L (10-42); SGPT/ALT 19 U/L (10-40); TOT PROT 6.9 g/dl (6.4-8.3)
--- NOTE | 2016-06-11 09:19 | PN ---
[id number] up this morning. OBJECTIVE: Vital Signs Period Temp Pulse Resp BP Sys/Mas Pulse Ox Last 24 Hr 97.8 F-98.3 F 73-73 18-18 117-126/62-68 95-97 GENERAL: The patient is awake, alert, and fully oriented, in no acute distress. HEAD: Normal with no signs of trauma. EYES: PERRL, extraocular movements intact, sclera anicteric, conjunctiva clear. No ptosis. ENT: Ears normal, nares patent, oropharynx clear without exudates, moist mucous membranes. NECK: Trachea midline, full range of motion, supple. LUNGS: Breath sounds equal, clear to auscultation bilaterally, no wheezes, no crackles, no accessory muscle use. HEART: Regular rate and rhythm, S1, S2 without murmur, rub or gallop. ABDOMEN: Soft, nontender, nondistended, normoactive bowel sounds, no guarding, no rebound, no hepatosplenomegaly, no masses. EXTREMITIES: Right foot erythema has again receded when compared to demarcated area. Still with some erythema at medial aspect of right great toe with warmth and tenderness. No exudate from incision site. 1+ pedal edema on the right side. Pedal pulse 2+. NEUROLOGICAL: Cranial nerves II through XII grossly intact. Normal speech, gait not observed. PSYCH: Normal mood, normal affect. SKIN: Warm, dry, normal, turgor. Noo rashes or lesions noted. Laboratory Results - last 24 hr 06/10/16 06/10/16 06/10/16 11:12 17:49 21:30 WBC RBC Hgb Hct MCV MCHC RDW Plt Count MPV Neutrophils % Lymphocytes % Monocytes % Eosinophils % Basophils % Sodium Potassium Chloride Carbon Dioxide Anion Gap BUN Creatinine Creat Clearance w eGFR POC Glucometer 169 233 184 Random Glucose Calcium Magnesium Total Bilirubin AST ALT Alkaline Phosphatase Total Protein Albumin 06/11/16 06/11/16 06/11/16 05:50 05:50 06:19 WBC 8.5 RBC 4.84 Hgb 14.2 Hct 41.8 MCV 86.4 MCHC 33.9 RDW 12.3 Plt Count 345 MPV 8.1 D Neutrophils % 56.4 Lymphocytes % 33.9 D Monocytes % 6.4 Eosinophils % 3.2 Basophils % 0.1 Sodium 138 Potassium 4.5 Chloride 104 Carbon Dioxide 26 Anion Gap 8 BUN 13 D Creatinine 0.7 Creat Clearance w eGFR > 60 POC Glucometer 174 Random Glucose 172 H D Calcium 9.2 Magnesium 1.9 Total Bilirubin 0.6 D AST 24 ALT 19 Alkaline Phosphatase 75 Total Protein 6.9 Albumin 3.4 L Active Medications Generic Name Dose Route Start Last Admin Trade Name Freq PRN Reason Stop Dose Admin Acetaminophen 650 mg 06/08/16 11:27 06/10/16 19:46 Tylenol - PO 650 mg Q4H PRN Administration FEVER OR PAIN Atorvastatin Calcium 20 mg 06/08/16 22:00 06/10/16 22:03 Lipitor - PO 20 mg HS GONZÁLEZ Administration Enoxaparin Sodium 40 mg 06/11/16 10:00 Lovenox - SQ DAILY GONZÁLEZ Piperacillin Sod/Tazobactam 50 mls @ 100 mls/hr 06/08/16 10:45 06/10/16 22:28 Sod 3.375 gm/ Sodium Chloride IVPB 100 mls/hr BID GONZÁLEZ Administration Protocol Vancomycin HCl 1,000 mg/ 250 mls @ 166.667 mls/hr 06/08/16 14:00 06/11/16 02:02 Sodium Chloride IVPB 166.667 mls/hr Q12H GONZÁLEZ Administration Insulin Aspart 0 units 06/08/16 11:00 06/11/16 06:43 Novolog Vial SQ 06/13/16 08:21 2 units ACHS GONZÁLEZ Administration Protocol Lactobacillus Acidophilus 1 tab 06/08/16 11:30 06/10/16 10:06 Bacid - PO 1 tab DAILY GONZÁLEZ Administration Multivitamins/Minerals/Vitamin C 1 tab 06/08/16 10:00 06/10/16 10:05 Tab-A-Vit - PO 1 tab DAILY GONZÁLEZ Administration Mupirocin 1 applic 06/09/16 22:00 06/10/16 22:11 Bactroban 2% Ointment - TP Not Given BID GONZÁLEZ Non-Formulary Medication 1 each 06/08/16 10:00 06/08/16 09:50 [place]-3 Fatty Acids/Fish Oil [Fish Oil 1,000 Mg Softgel] PO Not Given BID GONZÁLEZ Oxycodone HCl 5 mg 06/08/16 11:28 06/10/16 19:47 Roxicodone - PO 5 mg Q6H PRN Administration PAIN Ranitidine HCl 150 mg 06/08/16 11:30 06/10/16 10:05 Zantac - PO 150 mg DAILY GONZÁLEZ Administration Thyroid 15 mg 06/08/16 10:00 06/10/16 10:05 [place] Thyroid - PO 15 mg DAILY GONZÁLEZ Administration Microbiology 06/08/16 01:30 Blood - Peripheral Venous Blood Culture - Preliminary NO GROWTH OBTAINED AFTER 72 HOURS, INCUBATION TO CONTINUE FOR 2 DAYS. 06/08/16 01:30 Blood - Peripheral Venous Blood Culture - Preliminary NO GROWTH OBTAINED AFTER 72 HOURS, INCUBATION TO CONTINUE FOR 2 DAYS. 06/09/16 18:00 Foot - Right Dorsum Gram Stain - Final 06/08/16 01:20 Toe - Right Hallux Gram Stain - Final 06/08/16 01:20 Toe - Right Hallux Wound Culture - Final NO GROWTH AFTER 48 HOURS INCUBATION 06/08/16 03:30 Urine - Urine Clean Catch Urine Culture - Final NO GROWTH OBTAINED IMAGING Xray of right foot: ?Foreign body, no fracture MRI of right foot: Diffuse soft tissue edema, suspicious for early osteomyelitis ASSESSMENT/PLAN: 1. ID: right foot cellulitis -S/p bedside I&D with podiatry, fb removed; doubt true osteomyelitis -Continue Vancomycin/Zosyn; likely can transition to po abx tomorrow if ID agrees -Follow fever, WBC curve 2. ENDO: NIDDM -FSACHS -ISS -Diabetic diet Hypothyroidism -Continue [place] Thyroid 3. CARDS: Dyslipidemia -Continue Lipitor 4. F/E/N -Replete Mg -Diabetic diet 5. Ppx -Ambulation -Lovenox 40mg sq daily DISPO: Requires inpatient care. Possible dc tomorrow. Visit type - Emergency Visit Emergency Visit: Yes ED Registration Date: 06/08/16 Care time: The patient presented to the Emergency Department on the above date and was hospitalized for further evaluation of their emergent condition. - New Patient This patient is new to me today: Yes Date on this admission: 06/08/16 - Critical Care Critical Care patient: No - Discharge Referral Referred to [facility] No
[2016-06-11] MEDS: THYROID 15 MG TABLET PO SCH (09:46)
[2016-06-11] MEDS: MULTIVITAMINS (DAILY MVI) TABLET (FP) PO SCH (09:47)
[2016-06-11] MEDS: PIPERACILLIN/TAZOB 3.375 GM 3.375 GM in SODIUM CHLORIDE 50 ML IVPB SCH (09:47)
[2016-06-11] MEDS: RANITIDINE HCL 150 MG TABLET (FP) PO SCH (09:47)
[2016-06-11] MEDS: ENOXAPARIN NA (PORCINE) 40 MG/0.4 ML DISP.SYRIN SQ SCH (09:47)
[2016-06-11] MEDS: LACTOBACILLUS ACIDOPHILUS 1 EACH TAB (FP) PO SCH (09:48)
[2016-06-11] MEDS: ACETAMINOPHEN 325 MG TABLET (FP) PO PRN ×2 (09:49→21:53)
[2016-06-11] MEDS: MUPIROCIN 2% TOPICAL OINTMENT 22 GM TUBE TP SCH ×2 (09:49→21:55)
[2016-06-11] MEDS ORDERED: INSULIN (NOVOLOG) ASPART 100 UNITS/ML 10ML VIAL ONE ×2 (12:06→21:48)
[2016-06-11] MEDS: oxyCODONE HCL 5 MG TABLET PO PRN (21:54)
[2016-06-11] MEDS: ATORVASTATIN CA 20 MG TABLET (FP) PO SCH (21:55)
[2016-06-12] MEDS: VANCOMYCIN 1,000 MG in SODIUM CHLORIDE 250 ML IVPB SCH ×2 (02:19→13:24)
[2016-06-12] MEDS: INSULIN (NOVOLOG) ASPART 100 UNITS/ML 10ML VIAL SQ SCH (06:56)
[2016-06-12 08:48] LABS: BASOPHIL 0.4 % (0-2.0); EOSINOPHIL 4.2 % (0-4.5); MCH 28.6 pg (25.7-33.7); MCHC 33.5 g/dl (32.0-36.0); MEAN CELL VOLUME 85.2 fl (80-96); MEAN PLT VOLUME 7.6 fl (7.5-11.1); NEUTROPHILS 59.8 % (42.8-82.8); PLATELET COUNT 328 K/MM3 (134-434); RDW 12.1 % (11.6-15.6); WHITE BLOOD COUNT 7.5 K/mm3 (4.0-10.0)
[2016-06-12 09:53] LABS: CALCIUM 9.4 mg/dl (8.4-10.2); CREATININE 0.6 mg/dl (0.6-1.3)
[2016-06-12] MEDS ORDERED: PT OWN MED DRAWER 7, Y5N ONE (10:06)
[2016-06-12] MEDS: ENOXAPARIN NA (PORCINE) 40 MG/0.4 ML DISP.SYRIN SQ SCH (10:10)
[2016-06-12] MEDS: RANITIDINE HCL 150 MG TABLET (FP) PO SCH (10:11)
[2016-06-12] MEDS: MULTIVITAMINS (DAILY MVI) TABLET (FP) PO SCH (10:11)
[2016-06-12] MEDS: PIPERACILLIN/TAZOB 3.375 GM 3.375 GM in SODIUM CHLORIDE 50 ML IVPB SCH (10:17)
[2016-06-12] MEDS: MUPIROCIN 2% TOPICAL OINTMENT 22 GM TUBE TP SCH (10:18)
[2016-06-12] MEDS: THYROID 15 MG TABLET PO SCH (10:19)
[2016-06-12] MEDS: LACTOBACILLUS ACIDOPHILUS 1 EACH TAB (FP) PO SCH (10:19)
--- NOTE | 2016-06-12 10:46 | PN ---
Progress Note, Physician History of Present Illness: Awake, alert No c/o foot pain No fever/ chills Cultures negative - Current Medication List Current Medications: Active Medications Acetaminophen (Tylenol -) 650 mg PO Q4H PRN PRN Reason: FEVER OR PAIN Last Admin: 06/11/16 21:53 Dose: 650 mg Atorvastatin Calcium (Lipitor -) 20 mg PO HS [facility] Last Admin: 06/11/16 21:55 Dose: 20 mg Enoxaparin Sodium (Lovenox -) 40 mg SQ DAILY [facility] Last Admin: 06/12/16 10:10 Dose: 40 mg Piperacillin Sod/Tazobactam (Sod 3.375 gm/ Sodium Chloride) 50 mls @ 100 mls/ hr IVPB BID GONZÁLEZ PRN Reason: Protocol Last Admin: 06/12/16 10:17 Dose: 100 mls/hr Vancomycin HCl 1,000 mg/ (Sodium Chloride) 250 mls @ 166.667 mls/hr IVPB Q12H [facility] Last Admin: 06/12/16 02:19 Dose: Not Given Insulin Aspart (Novolog Vial) 0 units SQ ACHS GONZÁLEZ PRN Reason: Protocol Stop: 06/13/16 08:21 Last Admin: 06/12/16 06:56 Dose: Not Given Lactobacillus Acidophilus (Bacid -) 1 tab PO DAILY [facility] Last Admin: 06/12/16 10:19 Dose: 1 tab Multivitamins/Minerals/Vitamin C (Tab-A-Vit -) 1 tab PO DAILY [facility] Last Admin: 06/12/16 10:11 Dose: 1 tab Mupirocin (Bactroban 2% Ointment -) 1 applic TP BID [facility] Last Admin: 06/12/16 10:18 Dose: 1 applic Non-Formulary Medication ([place]-3 Fatty Acids/Fish Oil [Fish Oil 1,000 Mg Softgel]) 1 each PO BID [facility] Last Admin: 06/08/16 09:50 Dose: Not Given Oxycodone HCl (Roxicodone -) 5 mg PO Q6H PRN PRN Reason: PAIN Last Admin: 06/11/16 21:54 Dose: 5 mg Ranitidine HCl (Zantac -) 150 mg PO DAILY [facility] Last Admin: 06/12/16 10:11 Dose: 150 mg Thyroid ([place] Thyroid -) 15 mg PO DAILY [facility] Last Admin: 06/12/16 10:19 Dose: 15 mg - Objective Vital Signs: Vital Signs Temperature 97.4 F L 06/12/16 06:00 Pulse Rate 66 06/12/16 06:00 Respiratory Rate 19 06/12/16 06:00 Blood Pressure 115/58 06/12/16 06:00 O2 Sat by Pulse Oximetry (%) 97 06/12/16 06:00 Constitutional: Yes: No Distress Eyes: Yes: Conjunctiva Clear Cardiovascular: Yes: Regular Rate and Rhythm, S1, S2 Respiratory: Yes: CTA Bilaterally Gastrointestinal: Yes: Normal Bowel Sounds, Soft. No: Tenderness Extremities: Yes: Other (decreased erythema R foot mild residual swelling and erythema R great toe No wound drainage) Labs: CBC, BMP 06/12/16 08:15 06/12/16 08:15 INR, PTT INR 1.19 (0.82-1.09) H 06/08/16 01:32 Assessment/Plan Cellulitis R foot Leukocytosis- resolved Diabetes mellitus Substitute Augmentin 875mg po bid x 7d Outpatient follow up in office Local wound care
--- NOTE | 2016-06-12 11:04 | PN ---
Progress Note (short form) - Note Progress Note: Podiatry: Seen and evaluated at bedside, NAD. Pain improved to R great toe, denies F/V/N/ C/SOB/CP. S/p R great toe removal of foreign body at bedside 06/09. Afebrile, VSS. Notes improvement in redness/swelling. FRANK: R foot: pedal pulses palpable, TG wnl, CFT brisk to all toes. On the right great toe, there is a wound plantar IPJ of hallux. There is a superficial eschar overlying wound. There is superficial purulence expressed from wound. There is no deep purulence. There is no probing to bone, no fluctuance, no soft tissue crepitus. Erythema now to great toe medially. Ascending cellulitis improving. Moderate tenderness to palpation of wound. WBC: 7.5 Wound Cx: no growth Imp: 60 year old DM F with R great toe cellulitis/abscess s/p foreign body removal 1. C/w abx per ID 2. ID input appreciated. Will treat with PO augmentin x 7 days 3. Sx debridement at bedside with sterile scissors. No deep purulence noted. Only bloody drainage post-debridement. 4. Needs close follow up, I do not feel she needs further I&D at this point. Discussed with patient she will f/u with me tomorrow, 06/13 at [facility]: [phone]. 5. Bactroban + DSD daily to R foot. 6. WB with surgical shoe. 7. Will follow as outpatient. Nella Encarnacion DPM
--- NOTE | 2016-06-12 11:05 | DS ---
[id number] right foot OBJECTIVE:patient is a 60y/o female with a past medical history of NIDDM, Urosepsis and hyperlipidemia. Patient reports that on May, he noted pain and redness to her right great toe. She was evaluated by her primary care physician Dr. Roper on 06/05/2016, and placed on Augmentin. She reports compliance with Augmentin, however, on 06/07/2016 she reports the redness and pain worsened and she noticed the redness was spreading upward, she contacted her primary care physician and was referred to the emergency department for further evaluation. ER course was notable for: (1) cbc-->WBC 12.6 (2) xray of right foot questionable foreign body of right foot, no fracture (3) vancomycin 1gm given Vital Signs Period Temp Pulse Resp BP Sys/Mas Pulse Ox Last 24 Hr 97.4 F-98.5 F 66-76 18-19 115-146/58-76 95-97 PHYSICAL EXAM GENERAL: The patient is awake, alert, and fully oriented, in no acute distress. HEAD: Normal with no signs of trauma. EYES: PERRL, extraocular movements intact, sclera anicteric, conjunctiva clear. ENT: Ears normal, nares patent, oropharynx clear without exudates, moist mucous membranes. NECK: Trachea midline, full range of motion, supple. LUNGS: Breath sounds equal, clear to auscultation bilaterally, no wheezes, no crackles, no accessory muscle use. HEART: Regular rate and rhythm, S1, S2 without murmur, rub or gallop. ABDOMEN: Soft, nontender, nondistended, normoactive bowel sounds, no guarding, no rebound, no hepatosplenomegaly, no masses. EXTREMITIES: 2+ pulses, warm, well-perfused, no edema. right foot erythema has receded when compared to demarcated area. minimal erythema at medial aspect of right great toe with warmth and tenderness. No exudate from incision site. 1+ pedal edema on the right side. Pedal pulse 2+. NEUROLOGICAL: Cranial nerves II through XII grossly intact. Normal speech, gait not observed. PSYCH: Normal mood, normal affect. SKIN: Warm, dry, normal turgor, no rashes or lesions noted. LABS Laboratory Results - last 24 hr 06/11/16 06/11/16 06/11/16 11:59 16:36 21:43 WBC RBC Hgb Hct MCV MCHC RDW Plt Count MPV Neutrophils % Lymphocytes % Monocytes % Eosinophils % Basophils % Sodium Potassium Chloride Carbon Dioxide Anion Gap BUN Creatinine POC Glucometer 173 144 200 Random Glucose Calcium 06/12/16 06/12/16 06/12/16 06:53 08:15 08:15 WBC 7.5 RBC 4.76 Hgb 13.6 Hct 40.5 MCV 85.2 MCHC 33.5 RDW 12.1 Plt Count 328 MPV 7.6 Neutrophils % 59.8 Lymphocytes % 30.3 Monocytes % 5.3 Eosinophils % 4.2 Basophils % 0.4 D Sodium 140 Potassium 4.6 Chloride 104 Carbon Dioxide 27 Anion Gap 9 BUN 11 Creatinine 0.6 POC Glucometer 146 Random Glucose 168 H Calcium 9.4 Microbiology 06/08/16 01:30 Blood - Peripheral Venous Blood Culture - Preliminary NO GROWTH OBTAINED AFTER 96 HOURS, INCUBATION TO CONTINUE FOR 1 DAYS. 06/08/16 01:30 Blood - Peripheral Venous Blood Culture - Preliminary NO GROWTH OBTAINED AFTER 96 HOURS, INCUBATION TO CONTINUE FOR 1 DAYS. 06/09/16 18:00 Foot - Right Dorsum Gram Stain - Final 06/09/16 18:00 Foot - Right Dorsum Wound Culture - Preliminary NO GROWTH OBTAINED AFTER 24 HOURS INCUBATION, REINCUBATED. 06/08/16 01:20 Toe - Right Hallux Gram Stain - Final 06/08/16 01:20 Toe - Right Hallux Wound Culture - Final NO GROWTH AFTER 48 HOURS INCUBATION 06/08/16 03:30 Urine - Urine Clean Catch Urine Culture - Final NO GROWTH OBTAINED IMAGING Xray of right foot: ?Foreign body, no fracture MRI of right foot: Diffuse soft tissue edema, suspicious for early osteomyelitis HOSPITAL COURSE: patient was admitted from the emergency department for right foot cellulitis , patient was started on vancomycin and Zosyn on hospital day 1, blood cultures drawn and sent, blood cultures resulted as negative. Drainage was noted to the pustule on the right toe, wound culture was sent which resulted as no growth. infectious disease physician Dr. Bear was consulted on hospital day 1. actor understudy Dr. Olmos as consulted on hospital day 1. MRI was completedwhich was suspicious for early osteomyelitis. Bedside incision and drainage of the right toe was completed by actor understudy, wound cultures no growth to date. Patient was afebrile throughout hospitalizations leukocytosis resolved. Patient has a past medical history of NIDDM. after 4 days of hospitalization on Zosyn and vancomycin patient was transitioned to Augmentin on hospital day 4 as per the recommendation of infectious disease physician. She was placed on fingersticks before meals and at bedtime with regular insulin coverage. [place] was continued throughout hospitalization. lipitor was continued throughout her hospitalization. PLAN Augmentin 875 mg twice a day for 7 days Strict follow up with actor understudy dr. Olmos tomorrowJune 13 at the wound care center Strict follow up with infectious disease physician Dr. Bear within 1 week. Date of Admission:06/08/16 Date of Discharge: 06/12/16 Minutes to complete discharge: 45 Discharge Summary Reason For Visit: R/FOOT CELLULITIS Current Active Problems Cellulitis of right foot (Acute) Diabetes mellitus (Acute) Condition: Good - Instructions Diet, Activity, Other Instructions: use padded shoe when you are walking Keep foot clean and dry at all times continue Augmentin twice a day for 7 days continue dry dressing with bactroban to the wound daily please follow-up with the actor understudy , tomorrow at the wound care center--> [facility], fifth floor Please follow-up with the infectious disease physician, Dr. Bear within 1 week Return to the emergency department immediately with ANY new, persistent or worsening symptoms. You MUST call and follow up with your doctor (Dr. Roper) tomorrow. Please make sure your doctor reviews the results of your hospital stay. Referrals: Ray Bear MD [Staff Physician] - Chidi Encarnacion MD [Staff Physician] - Oziel Roper MD [Primary Care Provider] - Disposition: HOME - Home Medications Comprehensive Discharge Medication List: Ambulatory Orders Canagliflozin [Invokana] 100 mg PO DAILY tablet 04/12/15 Cholecalciferol (Vitamin D3) [Vitamin D3] 50,000 unit PO WEEKLY capsule Glipizide 10 mg PO 1/2 TAB BID tablet 04/12/15 Metformin HCl [Glucophage] 1,000 mg PO 1/2 TAB BID tablet 04/12/15 Multivitamin [Daily Multiple Vitamin] 1 each PO DAILY tablet 04/12/15 [place]-3 Fatty Acids/Fish Oil [Fish Oil 1,000 Mg Softgel] 1 each PO BID capsule 04/12/15 Thyroid [[place] Thyroid] 15 mg PO DAILY tablet 04/12/15 Dulaglutide [Trulicity] 0.75 mg SQ WEEKLY pen 07/27/15 This patient is new to me today: No Emergency Visit: Yes ED Registration Date: 06/08/16 Care time: The patient presented to the Emergency Department on the above date and was hospitalized for further evaluation of their emergent condition. Critical Care patient: No - Discharge Referral Referred to [facility] Yes Physician Referral: Oziel Roper MD (Int Med)
[2016-06-12 14:10] VITALS: BP 148/62; PULSE 76; TEMP 98.7
== END 2016-06-12 16:40 | disposition home or self-care (01) | DRG 603 ==
LOC: FER 22:59 → FM/S 06-08 04:40
PROVIDERS: ADMIT Internal Medicine; ATTEND Nurse Practitioner Family
PROC: 0J9Q3ZX Drainage of Right Foot Subcutaneous Tissue and Fascia, Percutaneous Approach, Diagnostic (ICD-10-PCS; principal; 2016-06-08)
PROC: 0HCMXZZ Extirpation of Matter from Right Foot Skin, External Approach (ICD-10-PCS; 2016-06-08)
DX: L03.031 Cellulitis of right toe (principal); S90.454A Superficial foreign body, right lesser toe(s), initial encounter; E78.5 Hyperlipidemia, unspecified; Z79.84 Long term (current) use of oral hypoglycemic drugs; E11.40 Type 2 diabetes mellitus with diabetic neuropathy, unspecified; X58.XXXA Exposure to other specified factors, initial encounter; Y93.89 Activity, other specified; Y92.89 Other specified places as the place of occurrence of the external cause; Y99.8 Other external cause status
CPT/HCPCS: 36415; 71010-TC; 73630-TC-RT; 73718-TC; 80048; 80053; 81003; 83036; 83605; 83735; 84100; 84439; 84443; 84550; 85025; 85610; 85651; 86140; 87040; 87070; 87086; 87186; 87205; 93005; 99284-25; G0480

== ENCOUNTER → 2016-06-15 | Day surgery (SDC) | payer OTHER ==
[~2016-06-15] MED LIST: PICC LINE 8 ML FLUSH PROTOCOL IVPUSH PRN
== END | disposition home or self-care (01) ==
LOC: JRADIR 13:40
PROVIDERS: ATTEND Internal Medicine
PROC: 06H033Z Insertion of Infusion Device into Inferior Vena Cava, Percutaneous Approach (ICD-10-PCS; principal; 2016-06-15)
PROC: B549ZZA Ultrasonography of Inferior Vena Cava, Guidance (ICD-10-PCS; 2016-06-15)
DX: M86.9 Osteomyelitis, unspecified (principal)
CPT/HCPCS: 36569; 77001-TC; C1751